=== PATIENT | female | born 2000 | race Caucasian/White ===

== ENCOUNTER 2023-04-28 15:07 | Emergency (ER) | payer MEDICAID | END 2023-04-28 15:37 | disposition home or self-care (01) | LOC: MADERS 15:07 | DX: S50.862A Insect bite (nonvenomous) of left forearm, initial encounter (principal); T78.40XA Allergy, unspecified, initial encounter; W57.XXXA Bitten or stung by nonvenomous insect and other nonvenomous arthropods, initial encounter | CPT/HCPCS: 99282 ==